=== PATIENT | male | born 1960 | race Caucasian/White ===

== ENCOUNTER 2020-07-26 15:06 | Inpatient (IN) | payer OTHER ==
[~2020-07-26 15:06] MED LIST: Iopamidol-370 76% 500 ML 1 ML ONE
--- NOTE | 2020-07-26 15:45 | RAD ---
XR Chest 1 View Portable HISTORY: Chest pain COMPARISON: None FINDINGS: The heart size is normal. The lungs are well expanded without focal areas of consolidation, pneumothorax or pleural effusions. IMPRESSION: No radiographic evidence of acute cardiopulmonary process.
[2020-07-26 15:56] LABS: #Basophils 0.1 thou/uL (0.0-0.2); #Lymphocytes 2.2 thou/uL (1.20-3.40); #Monocytes 0.9 thou/uL (0.11-0.59); #Neutrophils 7.3 thou/uL (1.40-6.50); %Basophils 0.7 % (0.0-1.0); %Eosinophils 0.3 % (0.0-10.0); %Lymphocytes 21.1 % (21.0-51.0); %Monocytes 8.9 % (0.0-10.0); Hemoglobin 16.7 g/dL (14.0-18.0); Mean Corpuscular HGB CONC 34.8 g/dL (32.0-36.0); Mean Corpuscular Hemoglobin 30.6 pg (27.0-31.0); Mean Corpuscular Volume 87.9 fL (78.0-98.0); Mean Platelet Volume 6.7 fL (7.4-10.4); Platelet Count 314 thou/uL (130-400); RBC Distribution Width 11.5 % (11.5-14.5); Red Blood Cell (RBC) Count 5.44 mill/uL (4.70-6.10); White Blood Cell (WBC) Count 10.6 thou/uL (4.8-10.8)
[2020-07-26 16:18] LABS: ALT (SGPT) 17 U/L (8-55); AST (SGOT) 17 U/L (5-34); Albumin 4.3 g/dL (3.5-5.0); Alkaline Phosphatase 80 U/L (40-110); Anion Gap 14 mmol/L (10-20); BUN (Urea Nitrogen) 12 mg/dL (8.4-25.7); Bilirubin, Total 1.6 mg/dL (0.2-1.2); Calc. Creatinine Clearance 0 mL/min (70-130); Calcium 8.9 mg/dL (7.8-10.44); Carbon Dioxide 23 mmol/L (22-29); Chloride 106 mmol/L (98-107); Estimated GFR-MDRD Greater than 90; Globulin 2.8 g/dL (2.4-3.5); Glucose 142 mg/dL (70-105); Lipase 29 U/L (8-78); Potassium 3.8 mmol/L (3.5-5.1); Protein, Total 7.1 g/dL (6.0-8.3); Sodium 139 mmol/L (136-145)
--- NOTE | 2020-07-26 19:09 | CT ---
CT ABDOMEN WITH CONTRAST CT PELVIS WITH CONTRAST: DATE: 07/26/2020 HISTORY: 55-year-old male with epigastric abdominal pain COMPARISON: None TECHNIQUE: IV injection of iodinated contrast media: administered. Oral contrast media:Not administered FINDINGS: At the dome of the right lobe of the liver in hepatic segment 8, there is a moderately low attenuatio n 1 x 1 x 1 cm lesion with slightly ill-defined margins in a subcapsular location. The rest of the liver is normal. Atherosclerotic calcification without aneurysm, of abdominal aorta and iliac arterie s. There is an approximately 4.5 x 4.2 x 2.7 cm diverticulum protruding from the right posterior edge of the urinary bladder. Rest of the urinary bladder is normal. No significant pathology identified involving the kidneys, adrenals, pancreas, or spleen. Normal appendix. No colonic diverticulitis or abscess. No small bowel dilation, ascites, or pneumoperitoneum. No consolidation or pleural effusion at lung b ases. IMPRESSION: 1) no acute findings. 2) small 1 cm nonspecific lesion at dome of right lobe of liver. [facility] with and without contrast, liver protocol, on a nonemergent basis. 3) prominent right-sided bladder diverticulum.
[2020-07-26 20:04] LABS: Troponin I Less than 0.010 ng/mL (< 0.028)
[2020-07-26] MEDS ORDERED: Nitroglycerin 0.4 MG TAB (25 Tab Bottle) SL PRN (20:10)
[2020-07-26] MEDS ORDERED: Aspirin 325 mg Enteric Coated Tablet PO SCH (21:38)
--- NOTE | 2020-07-26 21:48 | PDOC.HHP ---
Hospitalist HPI - History of Present Illness Chest pain History of Present Illness: This 75-year-old male patient with a history of hypertension was brought in from correction on account of worsening chest pain and abdominal pain. He notes his been having chest pain since December which is constant about 4-6 i n intensity, pleasant located lower retrosternal and persistent. Pain is typically nonradiating radiating and not related to meals or activity. He denies any recent sore throat or cough or associated shortness of breath. He however has intermittent wheezing given his history of COPD. He denies a history of coronary disease however admits to a history of stroke in 2019 and a TIA much earlier. He is currently not on aspirin and statins or any cardioprotective medications. In the ED EKG was unremarkable, Troponin was negative x2 d-dimer was negative, chest x-ray and abdominal CT were both negative for acute events however abdominal CT did note a lesion of 1 x 1 x 1 cm in the dome of the right lobe of the liver. Also 4.5 x 4.2 x 2.7 cm diverticulum also protruding from the right posterior edge of the urinary bladder. Hospitalist team was consulted to admit for chest pain rule out. Hospitalist ROS - Review of Systems Constitutional: denies: fever, chills, sweats, weakness Cardiovascular: reports: chest pain. denies: palpitations, orthopnea, paroxysmal noc. dyspnea Gastrointestinal: reports: abdominal pain. denies: nausea, vomiting, diarrhea Genitourinary: denies: dysuria, frequency, incontinence, hematuria Neurological: denies: weakness, numbness, incoordination, change in speech All other systems reviewed; all pertinent +/- noted in HPI/Subj - Medication Medications: Medications: None Allergies: Nitroglycerin - Exam General - other findings: Patient awake and alert. In no acute distress. Neck - other findings: No JVD, no lymphadenopathy. Heart - other findings: S1-S2 present and normal. No murmurs gallops or rubs. Respiratory - other findings: Air entry adequate bilaterally. Occasional wheezing bilaterally Gastrointestinal - other findings: Soft, mild left-sided tenderness. No rebound tenderness or guarding. [place] Extremities - other findings: No edema or cyanosis Neurological: cranial nerve grossly intact, no focal deficits Psychiatric: A&O x 3 Hospitalist Results - Labs Result Diagrams: 07/26/20 15:45 07/26/20 15:45 Lab results: WBC 10.6 thou/uL (4.8-10.8) 07/26/20 15:45 Hgb 16.7 g/dL (14.0-18.0) 07/26/20 15:45 Hct 47.8 % (42.0-52.0) 07/26/20 15:45 MCV 87.9 fL (78.0-98.0) 07/26/20 15:45 Plt Count 314 thou/uL (130-400) 07/26/20 15:45 Neutrophils % 69.0 % (42.0-75.0) 07/26/20 15:45 Sodium 139 mmol/L (136-145) 07/26/20 15:45 Potassium 3.8 mmol/L (3.5-5.1) 07/26/20 15:45 Chloride 106 mmol/L (98-107) 07/26/20 15:45 Carbon Dioxide 23 mmol/L (22-29) 07/26/20 15:45 BUN 12 mg/dL (8.4-25.7) 07/26/20 15:45 Creatinine 0.86 mg/dL (0.7-1.3) 07/26/20 15:45 Glucose 142 mg/dL (70-105) H 07/26/20 15:45 Calcium 8.9 mg/dL (7.8-10.44) 07/26/20 15:45 Total Bilirubin 1.6 mg/dL (0.2-1.2) H 07/26/20 15:45 AST 17 U/L (5-34) 07/26/20 15:45 ALT 17 U/L (8-55) 07/26/20 15:45 Alkaline Phosphatase 80 U/L (40-110) 07/26/20 15:45 Troponin I Less than 0.010 ng/mL (< 0.028) 07/26/20 19:31 Serum Total Protein 7.1 g/dL (6.0-8.3) 07/26/20 15:45 Albumin 4.3 g/dL (3.5-5.0) 07/26/20 15:45 Lipase 29 U/L (8-78) 07/26/20 15:45 Hospitalist H&P A/P - Plan Plan: This is a 55-year-old male patient with a history of hypertension was brought in and present on account of ongoing worsening chest pain. Chest pain Patient notes a conflicting history of coronary disease Also notes he is had a stroke in the past year. Start him on aspirin He is allergic to nitroglycerinwe will hold. Chest pain had resolved at the time of my evaluation. We will admit for monitoring overnight and cardiac evaluation in the morning for possible stress test. Abdominal pain Examination generally benign Bladder diverticulum noted on CT scan Also has hepatic lesion of unclear significance Hepatic lesion Noted on CT scan We will consult GI for further assessment. Bladder diverticulum Apparently asymptomatic Consult urology for further evaluation. DVT prophylaxisSCDs CODE STATUSfull code
[2020-07-26] MEDS: Acetaminophen 325 MG TAB PO PRN (21:59)
[2020-07-26 22:32] LABS: Troponin I Less than 0.010 ng/mL (< 0.028)
[2020-07-26 23:08] VITALS: BMI 23.8
[2020-07-27 04:39] LABS: #Basophils 0.1 thou/uL (0.0-0.2); #Eosinphils 0.2 thou/uL (0.0-0.7); #Lymphocytes 3.4 thou/uL (1.20-3.40); #Neutrophils 5.6 thou/uL (1.40-6.50); %Basophils 0.9 % (0.0-1.0); %Eosinophils 1.6 % (0.0-10.0); %Lymphocytes 33.1 % (21.0-51.0); %Monocytes 9.5 % (0.0-10.0); Hemoglobin 16.5 g/dL (14.0-18.0); Mean Corpuscular HGB CONC 33.8 g/dL (32.0-36.0); Mean Corpuscular Hemoglobin 30.3 pg (27.0-31.0); Mean Corpuscular Volume 89.6 fL (78.0-98.0); Mean Platelet Volume 6.6 fL (7.4-10.4); Platelet Count 304 thou/uL (130-400); RBC Distribution Width 11.7 % (11.5-14.5); Red Blood Cell (RBC) Count 5.44 mill/uL (4.70-6.10); White Blood Cell (WBC) Count 10.2 thou/uL (4.8-10.8)
[2020-07-27 05:01] LABS: Anion Gap 12 mmol/L (10-20); BUN (Urea Nitrogen) 15 mg/dL (8.4-25.7); Calc. Creatinine Clearance 107 mL/min (70-130); Calcium 8.7 mg/dL (7.8-10.44); Carbon Dioxide 23 mmol/L (22-29); Chloride 108 mmol/L (98-107); Estimated GFR-MDRD Greater than 90; Glucose 102 mg/dL (70-105); Potassium 4.2 mmol/L (3.5-5.1); Sodium 139 mmol/L (136-145)
[2020-07-27] MEDS: Aspirin 81 mg Enteric Coated Tablet PO SCH (07:49)
[2020-07-27] MEDS ORDERED: Regadenoson 0.4 MG/5 ML SYRINGE ONE (09:23)
[2020-07-27 14:58] LABS: SARS-CoV-2 MS2 Positive; SARS-CoV-2 N Gene Negative; SARS-CoV-2 S Gene Negative; SARS-CoV-2 by NAA Not Detected (NotDetected); SARS-CoV-2 orf1ab Negative
--- NOTE | 2020-07-27 15:27 | PDOC.HOSPP ---
- Subjective Encounter Date: 07/27/20 Encounter Time: 13:00 Subjective: Patient was seen and examined in bed. Chest pain improved. No shortness of breath. - Objective Vital Signs & Weight: Vital Signs (12 hours) Temp Pulse Resp BP Pulse Ox 07/27/20 11:16 98.3 F 73 16 133/89 96 07/27/20 07:02 98.1 F 73 20 134/77 94 L 07/27/20 04:34 97.6 F 72 18 117/75 93 L Weight Admit Weight 171 lb 4 oz Weight 171 lb 4 oz I&O: 07/26/20 07/27/20 07/28/20 06:59 06:59 06:59 Intake Total 677 Balance 677 Result Diagrams: 07/27/20 04:21 07/27/20 04:21 Hospitalist ROS - Medication Medications: Active Medications Generic Name Dose Route Start Last Admin Trade Name Freq PRN Reason Stop Dose Admin Acetaminophen 650 mg 07/26/20 20:10 07/26/20 21:59 Acetaminophen 325 Mg Tab PO 650 mg Q4H PRN Administration Headache/Fever/Mild Pain (1-3) Aspirin 81 mg 07/27/20 09:00 07/27/20 07:49 Aspirin 81 Mg Enteric Coated Tablet PO 81 mg DAILY MARY Administration - Exam General - other findings: Patient in arm and leg shackles. No acute distress. Heart - other findings: S1-S2 present and normal. No murmurs gallops or rubs. Respiratory - other findings: Entry adequate bilaterally. Rhonchi rales Gastrointestinal - other findings: Soft, nontender. Nondistended bowel sounds present. Extremities - other findings: No edema. Hosp A/P - Plan 55-year-old male patient, currently a prisoner with a history of hypertension on admission on account of chest pain. Chest pain Improved We will have stress test today Cardiology consulted. Abdominal pain Unclear etiology Hepatic lesion Noted on CT GI consultedappreciate input. Bladder diverticulum Likely asymptomatic however urology consulted Appreciate input. DVT prophylaxis SCD CODE STATUSfull code
--- NOTE | 2020-07-27 16:45 | CON ---
DATE OF CONSULTATION: 07/27/2020 REQUESTING PHYSICIAN: Dr. Barrington Magana. REASON FOR CONSULTATION: Bladder diverticulum. HISTORY OF PRESENT ILLNESS: Mr. Brady is a male with history of hypertension, who was brought in from shelter secondary to chest and abdominal pain. The patient has had a chest pain rule out. He underwent a stress test, which evidently was unremarkable. The patient continues to have some abdominal pain, describes it as a mid to low abdominal pressure. No nausea or vomiting. No fever or chills. CT of the abdomen and pelvis demonstrated a lesion on the right lobe of the liver as well as a right posterior bladder diverticulum. Urology was consulted for evaluation of the bladder diverticulum. The patient denies any bothersome lower urinary tract symptoms. No frequency, urgency, or nocturia. He does intermittently have weak stream and some intermittency. No gross hematuria. No other complaints. REVIEW OF SYSTEMS: Negative other than that mentioned in HPI. MEDICATIONS: None. ALLERGIES: NITROGLYCERIN. FAMILY HISTORY: Noncontributory. SOCIAL HISTORY: He is currently in shelter. PAST SURGICAL HISTORY: None. PAST MEDICAL HISTORY: 1. Hypertension. 2. History of stroke in 2019 and TIA prior to this. PHYSICAL EXAMINATION: VITAL SIGNS: Temperature 98.2, pulse 96, respirations 16, oxygen saturation 96% on room air, blood pressure 142/93. GENERAL: He is alert and oriented x3. No apparent distress. HEENT: Normocephalic, atraumatic. NECK: Supple. No masses or lymphadenopathy. CARDIOVASCULAR: Regular rate and rhythm. PULMONARY: Breathing unlabored. ABDOMEN: Soft, nontender/nondistended. No masses or organomegaly. No suprapubic tenderness to palpation. No CVA tenderness. EXTREMITIES: Warm and well perfused. No edema. NEUROLOGIC: No focal deficits. LABORATORY DATA: White blood cell count 10.2, hemoglobin 16.5, hematocrit 48.7, platelets 304. Sodium 139, potassium 4.2, chloride 108, bicarb 23, BUN 15, creatinine 0.82. ASSESSMENT: A 59-year-old male with nonspecific chest and abdominal pain, also with bladder diverticulum. PLAN: I reviewed the natural history and clinical implications of bladder diverticulum with the patient in detail. 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 He does not have significant bladder wall thickening or other diverticulum worrisome for bladder outlet obstruction. He has no bothersome lower urinary tract symptoms. This is an incidental finding and not likely the cause of his abdominal pain. There is no need for urologic followup at this time. Job ID: [id number]
[2020-07-27] MEDS: Acetaminophen 325 MG TAB PO PRN ×2 (16:47→22:54)
--- NOTE | 2020-07-27 16:49 | NM ---
MYOCARDIAL PERFUSION EVALUATION: 07/27/20 INDICATION: History of chest pain. RADIOPHARMACEUTICAL: 29.4 millicuries technetium 99m Sestamibi IV with stress and 9.5 millicuries technetium 99m Sestamibi with rest. FINDINGS: When comparing the rest and stress images, no reversible myocardial perfusion defect is evident. Ther e is normal wall motion and thickening. Estimated LVEF is 78%. IMPRESSION: No definite reversible myocardial perfusion defect is evident. POS: BH
[2020-07-27] MEDS ORDERED: GoLYTELY 4,000 ml Bottle PO SCH (17:00)
[2020-07-28 05:33] LABS: CEA, Serum 2.85 ng/mL (< or = 5.0)
[2020-07-28 05:48] LABS: HBCM Index 0.07 S/CO (0-0.79); HBSAg Index 0.17 S/CO (0-0.99); Hep A IgM AB Non-Reactive (NonReactive); Hep A IgM S/CO 0.16 S/CO (0-0.79); Hep B Surf Ag Non-Reactive S/CO (NonReactive); Hep C IgG Ab Non-Reactive (NonReactive); Hep C Index 0.07 S/CO (0-0.79); Hepatitis B Core IgM Abs Non-Reactive (NonReactive)
--- NOTE | 2020-07-28 06:32 | CON ---
DATE OF CONSULTATION: 07/27/2020 REQUESTING PHYSICIAN: Dr. Magana. REASON FOR CONSULTATION: Liver lesion. 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 He reports a history of coronary artery disease and CVA in 2019 as well as COPD. He says he recalls having undergone colonoscopy in 2017 or possibly a flexible sigmoidoscopy which he believes was normal. He recalls having had an EGD in the remote past and being told he had a hiatal hernia. He had been taking Zantac for a long time for some chronic reflux symptoms, but more recently is taking Prilosec daily. He says that ever since December for about the past 7 months now, he has been having generalized migratory abdominal pain. This often involves the lower abdomen, then swinging around to the left upper quadrant and involving the epigastrium. Sometimes it is postprandial, but often it is just random. It does bother him most days. There has been some nausea, though no vomiting. Through all this, his bowel movements have remained fairly unremarkable, brown in color with no melena or hematochezia noted. He has lost about 10 pounds in the past 6 months, which he attributes to change in diet due to his location, but then over the past several weeks, he has also been having some pain in the chest, which he does associate with the abdominal pain. He is not having any dyspnea or any dizziness or lightheadedness. Upon presentation, labs are essentially unremarkable with negative troponins, lipase, total bilirubin 1.6, but otherwise normal LFTs, CMP, and CBC. COVID PCR is negative. He had a CT of the abdomen and pelvis on admission yesterday and this shows a 4.5 cm bladder diverticulum and also a 1 cm subcapsular right-sided liver lesion near the dome. The liver otherwise appears normal and the CT is otherwise unremarkable. He went down for cardiac stress test this afternoon. The report on that is not yet back. Cardiology has been consulted as well. The patient has no known history of any liver disease or illness. REVIEW OF SYSTEMS: Full review of systems including constitutional, head, eyes, ears, nose, throat, GI, , cardiovascular, respiratory, musculoskeletal, neurologic systems is negative except as noted in the HPI. PAST MEDICAL HISTORY: Hypertension, hypothyroidism, CVA in 2019, CAD, COPD, hiatal hernia. ALLERGIES: NITROGLYCERIN. OUTPATIENT MEDICATIONS: 1. Omeprazole 20 mg daily. 2. Synthroid 50 mcg daily. 3. Lisinopril 20 mg daily. 4. Atorvastatin 40 mg daily. 5. Amlodipine 10 mg daily. Inpatient medication: 1. Aspirin 81 mg daily. SOCIAL HISTORY: The patient is a group home inmate. FAMILY HISTORY: Noncontributory PHYSICAL EXAMINATION: VITAL SIGNS: Temperature 98.3, pulse 73, blood pressure 133/89, 96% oxygen saturation on room air. GENERAL: A 59-year-old man, lying in bed comfortably, in no distress. MENTAL: Alert and fully oriented. Pleasant, conversational. He can give details about his history. SKIN: No jaundice. No rashes were palpable. He does have multiple tattoos. EYES: No scleral icterus. Extraocular movements intact. ENT: Mucous membranes moist. No oral lesions. LYMPH: No submandibular or supraclavicular lymphadenopathy. THYROID: Nontender to palpation. HEART: Regular rate and rhythm. LUNGS: Clear to auscultation bilaterally. ABDOMEN: Nondistended. Bowel sounds present. Soft. Generalized tenderness to palpation, but no guarding or rebound tenderness. EXTREMITIES: No peripheral edema. VESSELS: Radial pulses 2+ bilaterally. NEUROLOGIC: Cranial nerves 2 through 12 intact bilaterally. No focal deficits. LABORATORY STUDIES: WBC 10.2, hemoglobin 16.5, platelets 304. Sodium 139, potassium 4.2, BUN 15, creatinine 0.82, total bilirubin 1.6, alkaline phosphatase 80, AST 17, ALT 17, albumin 4.3, lipase only 29. D-dimer less than 0.27. Troponin negative x3. COVID PCR negative. IMAGING STUDIES: Chest x-ray shows no acute processes. CT of the abdomen and pelvis shows a 4.5 cm bladder diverticulum. There is also a 1 cm ill-defined subcapsular right-sided liver lesion near the dome of the liver, which is not able to be characterized further. The liver otherwise appears normal. Normal-appearing pancreas, spleen, appendix, and bowel. ASSESSMENT AND PLAN: 1. Generalized abdominal pain. 2. Solitary liver lesion, measuring 1 cm in the right liver near the dome. I had a long discussion with the patient about his presentation. This solitary liver lesion is likely incidental to his presenting complaints. We discussed a wide differential to include benign cyst or scar versus early primary liver neoplasm or solitary metastasis. I do think some further workup is in order. We are going to obtain viral hepatitis serologies and tumor markers including AFP, CA-19-9, and CEA levels. Further, we will plan for diagnostic EGD and colonoscopy. We will tentatively plan this for tomorrow, assuming it is okay per Cardiology evaluation. 3. Chest pain. He is not currently having any chest pain. Note, the negative troponins and D-dimer as well as chest x-ray. Report on the cardiac stress testing and formal Cardiology evaluation are pending. Thank you for the consultation. Please call anytime with questions or concerns. Job ID: [id number]
[2020-07-28] MEDS ORDERED: PROPOFOL 200 MG/20 ML VIAL ONE (09:14)
[2020-07-28] MEDS ORDERED: EPHEDRINE 25 MG/5 ML SYRINGE ONE (09:14)
--- NOTE | 2020-07-28 12:51 | CON ---
DATE OF CONSULTATION: HISTORY OF PRESENT ILLNESS: The patient is a 59-year-old gentleman who presents with abdominal and chest discomfort. The patient has a previous history of a cerebrovascular accident and multiple TIAs. The patient has no known cardiac history. The patient presented with constant chest and abdominal discomfort for the past several months. He states this is persistent. He denies having any PND or orthopnea. The patient was admitted for further evaluation. The patient has several cardiac risk factors including hypertension, dyslipidemia. PAST MEDICAL HISTORY: 1. Hypertension. 2. Dyslipidemia. 3. CVA. 4. Migraine headaches. PAST SURGICAL HISTORY: None. SOCIAL HISTORY: Nonsmoker. FAMILY HISTORY: Positive family history of heart disease. MEDICATIONS: 1. Synthroid 50 mcg daily. 2. Prilosec 20 daily. 3. Lisinopril 20 daily. 4. Lipitor 40 at bedtime. 5. Norvasc 10 daily. ALLERGIES: BUTYROPHENONE AND NITROGLYCERIN. REVIEW OF SYSTEMS: 10-point system otherwise unremarkable. PHYSICAL EXAMINATION: GENERAL: A well-developed gentleman, in no acute distress. VITAL SIGNS: Blood pressure 117/73. NECK: No jugular venous distention. LUNGS: Clear to auscultation. HEART: Regular rate and rhythm. Normal S1 and S2. No murmurs. ABDOMEN: Nondistended. EXTREMITIES: Show no edema. VASCULAR: Radial pulses are 2+. LABORATORY DATA: White blood cell count 10.2, hemoglobin 16.5, hematocrit 48.7, platelets are 304. Sodium 139, potassium 4.2, chloride 108, bicarbonate 23, BUN 15, creatinine 0.82. Troponin less than 0.01. EKG revealed him to have normal sinus rhythm with possible with small inferolateral Q-waves. Cardiolite stress test revealed normal left ventricular ejection fraction 78% with no evidence of ischemia or infarction. IMPRESSION: 1. Atypical chest pain. 2. Abdominal discomfort. 3. Hypertension. 4. Dyslipidemia. 5. History of cerebrovascular accident. PLAN: This gentleman presented with a 6-month history of persistent chest and abdominal discomfort. He is undergoing a GI evaluation. The patient's nuclear stress test reveals no evidence of ischemia. From a cardiac standpoint, he is on appropriate medications. He should continue on Lipitor and aspirin. We will follow this patient with you through his hospitalization. Job ID: [id number] [facility]
[2020-07-28] MEDS ORDERED: Ketorolac Tromethamine 30 MG/ML VIAL IVP SCH (13:15)
[2020-07-28] MEDS ORDERED: Ketamine 50 MG/ML (10ML VIAL) ONE (13:53)
--- NOTE | 2020-07-28 15:14 | PDOC.HOSPP ---
- Subjective Encounter Date: 07/28/20 Encounter Time: 15:12 Subjective: He was seen and examined in bed. He denied any ongoing chest pain or abdominal pain. No shortness of breath. - Objective Vital Signs & Weight: Vital Signs (12 hours) Temp Pulse Resp BP Pulse Ox 07/28/20 11:05 98.4 F 75 16 123/77 95 07/28/20 07:17 98.2 F 70 16 117/73 94 L 07/28/20 03:52 98.5 F 76 15 109/70 95 Weight Admit Weight 171 lb 4 oz Weight 171 lb 4 oz I&O: 07/27/20 07/28/20 07/29/20 06:59 06:59 06:59 Intake Total 677 500 Balance 677 500 Result Diagrams: 07/27/20 04:21 07/27/20 04:21 Hospitalist ROS - Medication Medications: Active Medications Generic Name Dose Route Start Last Admin Trade Name Freq PRN Reason Stop Dose Admin Acetaminophen 650 mg 07/26/20 20:10 07/27/20 22:54 Acetaminophen 325 Mg Tab PO 650 mg Q4H PRN Administration Headache/Fever/Mild Pain (1-3) Aspirin 81 mg 07/27/20 09:00 07/27/20 07:49 Aspirin 81 Mg Enteric Coated Tablet PO 81 mg DAILY MARY Administration Ketorolac Tromethamine 30 mg 07/28/20 13:15 07/28/20 13:19 Ketorolac Tromethamine 30 Mg/Ml Vial IVP 07/28/20 15:15 30 mg NOW MARY Administration - Exam General - other findings: No acute distress. Heart: RRR, no murmur, no gallops, no rubs Respiratory: no wheezes, no rales, no ronchi, normal chest expansion Gastrointestinal: soft, non-tender, non-distended, normal bowel sounds Extremities: no cyanosis, no clubbing, no edema Neurological: cranial nerve grossly intact, no focal deficits Psychiatric: A&O x 3 Hosp A/P - Plan 55-year-old male patient, currently a prisoner with a history of hypertension on admission on account of chest pain. Stress test was negative. He is however been evaluated for hepatic nodule and will undergo endoscopy today. Chest pain Improved Stress test was within normal limits. We will continue Lipitor and aspirin Cardiology following Abdominal pain Unclear etiology Currently resolved. Hepatic lesion Noted on CT GI consulted He will have upper and lower GI endoscopy today Bladder diverticulum Likely asymptomatic however urology consulted No surgery needed at this point Appreciate input. DVT prophylaxis SCD CODE STATUSfull code
[2020-07-28] MEDS ORDERED: Ondansetron HCl/PF 4 MG/2 ML Vial IVP PRN (15:44)
[2020-07-28] MEDS ORDERED: Promethazine HCl 25 MG/ML VIAL IM PRN (15:44)
[2020-07-28] MEDS ORDERED: Promethazine HCl 25 MG/ML VIAL SLOW IVP PRN (15:44)
[2020-07-28] MEDS: Aspirin 81 mg Enteric Coated Tablet PO SCH ×2 (16:42→16:51)
--- NOTE | 2020-07-28 18:33 | OP ---
DATE OF PROCEDURE: 07/28/2020 GRAPE CRUSHER SURGEON: None. PROCEDURES PERFORMED: 1. Esophagogastroduodenoscopy with biopsies. 2. Colonoscopy, diagnostic. INDICATIONS: 1. Generalized abdominal pain. 2. Chest pain. 3. Solitary 1 cm liver lesion. 4. Weight loss. MEDICATIONS: See Anesthesia record. FINDINGS: After discussion of the risks, benefits, and alternatives of the procedure, informed consent was obtained and witnessed. Pre-endoscopic cardiopulmonary examination was satisfactory. Time-out was performed before sedation was achieved. Sedation was achieved with Anesthesia assistance in the endoscopy unit. A Pentax adult upper endoscope was placed into the oropharynx and passed through the cricopharyngeus under direct visualization. The esophageal mucosa appeared normal throughout with a normal-appearing Z-line. The endoscope was advanced into the stomach. Forward and retroflexed views of the entire gastric mucosa were obtained. The gastric fundus and body appeared normal. In the gastric antrum, there was some diffuse erosive gastritis with no evidence of active hemorrhage. The endoscope was advanced through the pylorus and into the first and second portions of the duodenum, which appeared normal. Biopsies were obtained from the gastric antrum and body to rule out H pylori infection. The upper endoscope was completely withdrawn and the patient was repositioned. Digital rectal exam was performed, which was unremarkable. A Pentax adult colonoscope was inserted into the anus and passed forward to the cecum in the usual fashion. The cecal base was identified by the appendiceal orifice as well as the ileocecal valve. The terminal ileum was not intubated. The colonoscope was slowly withdrawn in a gradual circumferential manner with careful examination of the colonic mucosa to the best extent possible. The quality of the bowel prep was poor in the right colon, however. There was good visualization of probably 70% to 80% of the colonic mucosa in the right colon. This was adequate to exclude any gross lesions, but would not be adequate for screening purposes. Where examined, the colonic mucosa appeared completely normal throughout. Retroflexion in the rectum demonstrated internal hemorrhoids. The colonoscope was completely withdrawn and the patient allowed to recover. The patient tolerated the procedure well. There were no immediate postprocedure complications. IMPRESSION: 1. Erosive gastritis in the antrum, biopsied to rule out Helicobacter pylori. 2. Small hiatal hernia. 3. Otherwise normal esophagogastroduodenoscopy. 4. Poor preparation in the right colon, but no obvious lesion or abnormality visualized within the limits of poor prep exam. 5. Internal hemorrhoids. 6. Otherwise normal colonoscopy to the cecum. RECOMMENDATIONS: 1. Daily proton pump inhibitor. 2. Follow up results of gastric biopsies. If H pylori is present, treat with triple therapy and confirm eradication. 3. Advance diet. 4. I note the normal AFP and CEA levels. We will follow up on the CA-19-9 level when available. 5. I would recommend the patient have repeat interval imaging of the liver, with MRI of the abdomen, liver mass protocol, in 3 months. This should be arranged through the [facility]. 6. GI will sign off. Please call back if needed. Job ID: [id number]
[2020-07-28] MEDS ORDERED: Atorvastatin Calcium 40 MG TAB PO SCH (21:00)
[2020-07-28] MEDS ORDERED: Metoprolol Tartrate 25 MG TAB PO SCH (21:00)
[2020-07-28 21:04] LABS: #Eosinphils 0.1 thou/uL (0.0-0.7); #Lymphocytes 2.7 thou/uL (1.20-3.40); #Monocytes 0.9 thou/uL (0.11-0.59); #Neutrophils 9.4 thou/uL (1.40-6.50); %Basophils 0.4 % (0.0-1.0); %Eosinophils 0.8 % (0.0-10.0); %Lymphocytes 20.4 % (21.0-51.0); %Neutrophils 71.5 % (42.0-75.0); Hemoglobin 16.2 g/dL (14.0-18.0); Mean Corpuscular HGB CONC 33.8 g/dL (32.0-36.0); Mean Corpuscular Hemoglobin 29.9 pg (27.0-31.0); Mean Corpuscular Volume 88.5 fL (78.0-98.0); Mean Platelet Volume 6.5 fL (7.4-10.4); Platelet Count 324 thou/uL (130-400); RBC Distribution Width 11.4 % (11.5-14.5); Red Blood Cell (RBC) Count 5.41 mill/uL (4.70-6.10); White Blood Cell (WBC) Count 13.2 thou/uL (4.8-10.8)
[2020-07-28 21:27] LABS: Anion Gap 13 mmol/L (10-20); BUN (Urea Nitrogen) 16 mg/dL (8.4-25.7); Calc. Creatinine Clearance 81 mL/min (70-130); Calcium 8.9 mg/dL (7.8-10.44); Carbon Dioxide 26 mmol/L (22-29); Chloride 103 mmol/L (98-107); Estimated GFR-MDRD 70; Glucose 130 mg/dL (70-105); Magnesium 1.8 mg/dL (1.6-2.6); Potassium 3.8 mmol/L (3.5-5.1); Sodium 138 mmol/L (136-145)
[2020-07-29 07:17] VITALS: BP 130/89; TEMP 97.5
[2020-07-29] MEDS: Aspirin 81 mg Enteric Coated Tablet PO SCH (07:53)
--- NOTE | 2020-07-30 11:11 | DIS ---
DATE OF ADMISSION: 07/26/2020 DATE OF DISCHARGE: 07/29/2020 DISCHARGE DIAGNOSES: 1. Atypical chest pain. 2. Abdominal pain. 3. Solitary hepatic cyst/lesion. 4. Bladder diverticulum. 5. Anxiety. BRIEF HOSPITAL COURSE: This is a 59-year-old male patient with a history of hypertension who presented with pain in the chest and abdomen. At presentation, CT scan of his abdomen revealed a solitary hepatic lesion and bladder diverticulum. Otherwise, no other lesion to explain his pain. His chest pain has been intermittent for the past 5 months and has worsened over the past couple of days. Initial troponin was negative. No concerning EKG changes. EKG revealed no concerning ST or T wave changes. Chest x-ray showed no acute cardiopulmonary events. He was admitted for a stress test, which turned out negative- Cardiology was consulted. He was started on aspirin and statins. GI evaluated solitary hepatic nodule with an upper and lower GI endoscopy, which revealed no lesion, but mild gastritis, for which a biopsy was taken, which showed no Helicobacter pylori. He would follow up with the GI in the intermediate system for further evaluation. He would require repeat MRI in 3 month. For bladder diverticulum, Urology was consulted. It was noted that bladder diverticulum was benign. It could not account for his abdominal pain. The patient was discharged to follow up his primary care physician and repeat MRI of the abdomen. CONSULTATIONS: 1. Gastroenterology - Dr. Richard Weiss. 2. Urology - Dr. Maurice Ruffin. 3. Cardiology - Dr. Lio Marquez. DISCHARGE PHYSICAL EXAMINATION: GENERAL: The patient was in no acute distress. RESPIRATORY SYSTEM: Air entry adequate bilaterally. No rhonchi or rales. CARDIOVASCULAR SYSTEM: S1 and S2 present. No murmurs, gallops, or rubs. ABDOMEN: Soft, nontender. Bowel sounds present. EXTREMITIES: No edema noted. DISCHARGE MEDICATIONS: 1. Aspirin 81 mg daily. 2. Atorvastatin 40 mg daily. He will continue his home medications. DISCHARGE CONDITION: Stable. Job ID: [id number] [facility]
--- NOTE | 2020-07-30 16:04 | EKG ---
Test Reason : CP Blood Pressure : / mmHG Vent. Rate : 114 BPM Atrial Rate : 114 BPM P-R Int : 192 ms QRS Dur : 090 ms QT Int : 324 ms P-R-T Axes : 054 047 036 degrees QTc Int : 446 ms Sinus tachycardia Inferior infarct , age undetermined cannot be excluded Abnormal ECG No previous ECGs available Confirmed by LAN BENAVIDES ([id number]) on 07/30/2020 4:04:33 PM Referred By: NIRMAL Confirmed By:LAN BENAVIDES
--- NOTE | 2020-07-30 21:45 | PQF ---
CLINICAL DOCUMENTATION CLARIFICATION FORM: Dear : ___Barrington Magana MD, PhD DateTime:_07/30/2020 Please exercise your independent, professional judgment in responding to the clarification form. Clinical indicators are provided on the bottom of this form for your review Please check appropriate box(es): [ ] Atypical Chest pain due to Hypertension [ ] Atypical Chest pain due to Liver lesion [ x] Atypical chest pain due to unspecified cause [ ] Other diagnosis [ ] Unable to determine Physician Signature: REINA Date/Time: For continuity of documentation, please document condition throughout progress notes and discharge summary. Thank You. To be completed by CDI/Coding staff for physician review: Present Clinical Indicators - Signs / Symptoms / Labs Results and Location in Medical Record [x ] Chest pain -improved Hospital PN, 07/28, Barrington Magana MD [x ] Atypical Chest pain Consultation, 07/28, Lio Marquez MD [x ] Non specific chest and abdominal pain and also with bladder diverticulum Consultation report, 07/27, Maurice Ruffin MD [ x ] The patients nuclear stress test reveals no evidence of ishemia Consultation report, 07/27, Maurice Ruffin MD [ x ] BP: 162/94H on 07/27, 107/64 on 07/29, 130/89 on 07/29 Vital signs report Present Risk Factors Results and Location in Medical Record [x ] PMH: Hypertension Hospital PN, 07/28, Barrington Magana MD [ x] Hepatic lesion Hospital , 07/28, Barrington Magana MD Present Treatments Results and Location in Medical Record [x ] Nitroglycerin.PO DEC, 07/26 [ x ] Aspirin.PO DEC, 07/26 CDS/Spooler Signature: Reggie Banks Phone #: [phone] Date/Time:07/30/2020 This is a permanent part of the Medical Record [facility]
--- NOTE | 2020-08-07 13:49 | STRESS ---
Acquisition Time: 2020-07-27 13:43:44 Total Exercise Time: 00:01:00 Test Indications: CHEST PAIN Medications: Protocol: LEXISCAN Max HR: 123 BPM 76% of Pred: 161 BPM Max BP: 172/100 mmHG Max Work Load: 1.0 METS THE PATIENT WAS INJECTED WITH LEXISCAN. HE DID NOT DEVELOP CHEST PAIN. THERE WAS NO SIGNIFICANT ST DEPRESSION. AWAIT NUCLEAR IMAGES FOR DEFINITIVE DIAGNOSIS. Confirmed by LAN BENAVIDES ([id number]), features editor GIOVANNI VALENCIA ([id number]) on 08/07/2020 1:49:22 PM Referred By: MD Paulina LOO Confirmed By:LAN BENAVIDES
--- NOTE | 2020-08-07 16:42 | EKG ---
Test Reason : Blood Pressure : / mmHG Vent. Rate : 117 BPM Atrial Rate : 117 BPM P-R Int : 162 ms QRS Dur : 088 ms QT Int : 320 ms P-R-T Axes : 061 039 033 degrees QTc Int : 446 ms Sinus tachycardia Possible Lateral infarct , age undetermined Abnormal ECG Confirmed by SERGE ARNDT DO ([id number]), videotape editor MARICRUZ ROMERO ([id number]) on 08/07/2020 4:42:16 PM Referred By: Confirmed By:SERGE ARNDT DO
== END 2020-07-29 11:24 | DRG 392 ==
LOC: ERS 15:06 → 2SW 19:19 → EDBD 19:19 → OBSVTOIN 19:19
PROVIDERS: ADMIT Student in an Organized Health Care Education/Training Program; ATTEND Student in an Organized Health Care Education/Training Program
PROC: 0DB78ZX Excision of Stomach, Pylorus, Via Natural or Artificial Opening Endoscopic, Diagnostic (ICD-10-PCS; principal; 2020-07-28)
PROC: 0DJD8ZZ Inspection of Lower Intestinal Tract, Via Natural or Artificial Opening Endoscopic (ICD-10-PCS; 2020-07-28)
DX: R10.9 Unspecified abdominal pain (principal); R07.89 Other chest pain; N32.3 Diverticulum of bladder; K76.9 Liver disease, unspecified; I10 Essential (primary) hypertension; Z20.828 Contact with and (suspected) exposure to other viral communicable diseases; I25.10 Atherosclerotic heart disease of native coronary artery without angina pectoris; E03.9 Hypothyroidism, unspecified; K21.9 Gastro-esophageal reflux disease without esophagitis; K64.8 Other hemorrhoids; K44.9 Diaphragmatic hernia without obstruction or gangrene; K29.00 Acute gastritis without bleeding; E78.5 Hyperlipidemia, unspecified; K64.9 Unspecified hemorrhoids; J44.9 Chronic obstructive pulmonary disease, unspecified; G43.909 Migraine, unspecified, not intractable, without status migrainosus; Z88.8 Allergy status to other drugs, medicaments and biological substances; Z86.73 Personal history of transient ischemic attack (TIA), and cerebral infarction without residual deficits; Z95.5 Presence of coronary angioplasty implant and graft
CPT/HCPCS: 36415; 71045; 74177; 78452; 80048; 80053; 80074; 82105; 82378; 83690; 83735; 84484; 85025; 85379; 86301; 87635; 88305; 88312; 93005; 93010; 93017; 94760; A9500; G0378; J1885; J2704; J2785; Q9967; U0003

== ENCOUNTER 2020-12-23 18:45 | Inpatient (IN) | payer OTHER ==
[~2020-12-23 18:45] MED LIST changes: +Iopamidol 370 76% 100 ML VIAL ONE
[2020-12-23] MEDS ORDERED: diphenhydrAMINE 50 MG/ML VIAL ONE (18:53)
[2020-12-23] MEDS ORDERED: methylPREDNISolone Sod Succ/PF 125 MG/2 ML VIAL ONE (18:53)
--- NOTE | 2020-12-23 19:02 | CT ---
EXAM: CT brain without contrast HISTORY: Dysphasia COMPARISON: None TECHNIQUE: Multiple contiguous axial images were obtained and a CT of the brain without contrast. Sag ittal and coronal reformats were performed. FINDINGS: The brain is normal in morphology and attenuation without focal lesions or confluent areas of infarction. There is no evidence of hydrocephalus, intracranial hemorrhage, or extra-axial fluid collection. The calvarium and overlying soft tissues are unremarkable. The visualized paranasal sinuses and masto id air cells are well aerated. IMPRESSION: No evidence of acute intracranial abnormality
--- NOTE | 2020-12-23 19:31 | CT ---
CTA of the head with IV contrast and 3-D reformatted imaging. CTA of the neck with IV contrast and 3-D reformatted imaging. INDICATION: Level 1 stroke; history of dysphasia and right-sided weakness COMPARISON: None FINDINGS: CTA OF THE HEAD WITH CONTRAST: CTA OF THE BRAIN: Right ICA: Patent. Right MCA: Patent. Right DEMI: Patent. ACOM: Patent. Left ICA: Patent. Left MCA: Patent. Left DEMI: Patent. PCOMs: Patent. Vertebral arteries: Patent. Basilar Artery: Patent. strap machine operator automatic: Patent. Incidentals: There is slight asymmetry of the venous sinuses; however, both transverse sinuses, sigm oid sinuses and jugular sinuses appear patent. There is some mixing artifact within the proximal jugular veins. This is likely related to a developmental variant. CTA OF THE NECK WITH CONTRAST: Right CCA: Patent. Right ICA: There are mild calcifications involving the origin of the right ICA. Right Subclavian: Patent. Right Vertebral Artery: Patent. Left CCA: Patent. Left ICA: There are mild obstructive constipation involving the proximal left ICA. No hemodynamicall y significant stenosis is evident. Left Subclavian: Patent. Left Vertebral Artery: Patent. Aerodigestive tract: There is fluid distention of the esophagus. Parotids/Submandibular/Thyroid glands: Normal. Lymph nodes: No pathologically enlarged lymph nodes. Lung Apices: Emphysema Bones: There is scattered degenerative and osteoarthritic change present. Incidentals: None. IMPRESSION: 1. No hemodynamically significant stenosis, occlusion or aneurysmal formation. 2. Moderate fluid distention esophagus may reflect dysphagia or reflux.
--- NOTE | 2020-12-23 19:32 | CT ---
EXAM: CTA of the chest and abdomen HISTORY: Chest pain and back pain COMPARISON: CT abdomen/pelvis 07/26/2020 TECHNIQUE: Multiple contiguous axial images were obtained a CTA of the chest and abdomen with contras t per aortic dissection protocol. Sagittal and coronal 3-D MIP reformats were performed. FINDINGS: HEART: Normal in size without focal cardiac abnormality. PULMONARY ARTERIES: Normal in caliber without filling defects to suggest pulmonary emboli. MEDIASTINUM: No hilar or mediastinal lymphadenopathy. LUNGS: Paraseptal emphysematous changes in the apices. A calcified granuloma is seen in the left uppe r lobe. No focal infiltrates or suspicious masses. PLEURAL SPACE: No pleural effusion or pneumothorax. CHEST AND ABDOMINAL WALL SOFT TISSUES: Unremarkable LIVER: The previously seen small area of hypodensity along the dome of the liver appears to have la pheral puddling and may represent a hemangioma.. GALLBLADDER: Unremarkable. KIDNEYS: Unremarkable. SPLEEN: Unremarkable. PANCREAS: Unremarkable. BOWEL: Unremarkable. RETROPERITONEUM: No lymphadenopathy BONES: Degenerative changes in the spine. ASCENDING THORACIC AORTA: Normal caliber without evidence of dissection or aneurysmal dilatation. DESCENDING THORACIC AORTA: Normal caliber without evidence of dissection or aneurysmal dilatation. M ild diffuse atherosclerotic disease. ABDOMINAL AORTA: Normal caliber without evidence of dissection or aneurysmal dilatation. Moderate dif fuse atherosclerotic disease in the infrarenal aorta down to the bifurcation. CELIAC TRUNK: Patent SMA: Patent JOSÉ: Patent RENAL ARTERIES: Bilateral single renal arteries without significant atherosclerotic disease IMPRESSION: No evidence of thoracic or abdominal aortic aneurysm or dissection
[2020-12-23 19:57] LABS: Hemoglobin 17.9 g/dL (14.0-18.0); Mean Corpuscular Volume 88.1 fL (78.0-98.0); Mean Platelet Volume 7.5 fL (7.4-10.4); Platelet Count 339 thou/uL (130-400); RBC Distribution Width 11.6 % (11.5-14.5); Red Blood Cell (RBC) Count 5.97 mill/uL (4.70-6.10); White Blood Cell (WBC) Count 21.4 thou/uL (4.8-10.8)
[2020-12-23 20:14] LABS: Band 10 % (5-11); Lymphocytes 28 % (21-51); MDiff Complete? YES; Monocytes 10 % (0-10); Neutrophil 52 % (42-75); Platelet Morphology Comment Appears Adequate; RBC Morphology Normal
[2020-12-23 21:43] LABS: SARS-CoV-2 NAA Rapid Test Not Detected (NotDetected)
[2020-12-23 22:25] LABS: Albumin 3.7 g/dL (3.5-5.0)
[2020-12-23 22:26] LABS: Chloride 103 mmol/L (98-107); Potassium 3.9 mmol/L (3.5-5.1); Sodium 134 mmol/L (136-145)
[2020-12-23 22:28] LABS: Globulin 2.5 g/dL (2.4-3.5); Glucose 142 mg/dL (70-105); Protein, Total 6.2 g/dL (6.0-8.3)
[2020-12-23 22:29] LABS: Anion Gap 14 mmol/L (10-20); Bilirubin, Total 1.3 mg/dL (0.2-1.2); Carbon Dioxide 21 mmol/L (22-29)
[2020-12-23 22:31] LABS: Alkaline Phosphatase 87 U/L (40-110); Calc. Creatinine Clearance 0 mL/min (70-130)
[2020-12-23 22:32] LABS: BUN (Urea Nitrogen) 19 mg/dL (8.4-25.7)
[2020-12-23 22:33] LABS: AST (SGOT) 18 U/L (5-34)
[2020-12-23 22:34] LABS: ALT (SGPT) 18 U/L (8-55)
[2020-12-23 23:27] LABS: Troponin I Less than 0.010 ng/mL (< 0.028)
[2020-12-24 00:12] LABS: Bilirubin Negative (Negative); Blood, Urine Negative (Negative); Clarity Clear (Clear); Glucose, Urine (Dipstick) Normal (Negative); Ketone, Urine Negative (Negative); Leukocyte Negative Leu/uL (Negative); Nitrite Negative (Negative); Protein, Urine (Dipstick) Negative (Neg-Trace); Urobilinogen Normal mg/dL (Less than 2); pH, Urine 6.5 (5.0-9.0)
[2020-12-24 00:15] LABS: Specific Gravity, Urine 1.048 (1.002-1.036)
[2020-12-24 00:54] VITALS: BMI 25.4
[2020-12-24 02:18] LABS: Troponin I 0.014 ng/mL (< 0.028)
[2020-12-24] MEDS ORDERED: niCARdipine 25 MG in Sodium Chloride 0.9% 250 ML 250 ML IVPB PRN (03:33)
[2020-12-24] MEDS ORDERED: [UNRECOGNIZED DRUG - REMARK] FS SCH (03:33)
[2020-12-24] MEDS ORDERED: hydrALAZINE 20 MG/ML VIAL SLOW IVP PRN (03:33)
[2020-12-24] MEDS ORDERED: Labetalol HCl 100 MG/20 ML VIAL SLOW IVP PRN (03:33)
[2020-12-24] MEDS: Sodium Chloride 0.9% 1,000 ML IV SCH ×2 (05:26→09:29)
--- NOTE | 2020-12-24 07:25 | CT ---
PRELIMINARY REPORT/[facility]/EMERGENCY AFTER HOURS PROCEDURE: EXAM: CT Head Without Intravenous Contrast. CLINICAL HISTORY: CVA FOLLOW UP TECHNIQUE: Axial computed tomography images of the head/brain without intravenous contrast. COMPARISON: 12/23/2020 FINDINGS: The ventricles, cisterns and sulci are within normal limits. No intra parenchymal or extra-axial mass , hemorrhage, or mass effect. Cordova and white-matter differentiation is within normal limits for niecy ent age. Normal spherical shape of the globes. No significant abnormality involving the imaged portions of th e paranasal sinuses and mastoid air cells. No skull or facial fracture visualized. IMPRESSION: No acute intracranial hemorrhage or mass effect. ELECTRONICALLY SIGNED BY: Basil Johns MD Dec 24, 2020 5:00:32 AM [employer] This report is intended for review by the ordering physician only, in accordance of law. If you recei ve this report in error, please call [facility] at [phone]. FINAL REPORT HEAD CT WITHOUT CONTRAST: COMPARISON: 12/23/2020. HISTORY: CVA. FINDINGS: No parenchymal hemorrhage. No extra-axial hematoma. No midline shift. Basilar cisterns are patent. Brain volume is age-appropriate. Cortical cordova-white matter differentiation is preserved. No hydrocephalus. Calvarium is intact. Adequate aeration of sinuses and mastoid air cells. IMPRESSION: 1. This report is in agreement with initial report by [facility]. 2. No acute intracranial process. POS: PPP
--- NOTE | 2020-12-24 08:28 | HP ---
REASON FOR ADMISSION: Chest pain. HISTORY OF PRESENT ILLNESS: This is a 60-year-old male patient, who is a prisoner, was brought from the retirement complaining of chest pain. While he was in the emergency room, he developed left-sided weakness, and for concern of carotid dissection, he had a CTA of the chest and brain. They were negative. Neurology was consulted and he was cleared to receive tPA, which he did. Subsequently, he clinically improved and now he is basically back to normal. He is currently in the IM, appears to be very comfortable, does not elaborate much on his symptoms. I did review his records. The patient was admitted to our hospital approximately 3 months ago for atypical chest pain. During his stay, he did undergo a stress test that was negative. He was seen by Cardiology, was started on aspirin and statin. He was diagnosed with a solitary hepatic nodule. He was evaluated by Gastroenterology. He did undergo an upper and lower endoscopy. Those procedures were negative for lesions except for mild gastritis. Biopsy was negative for H pylori. He was also diagnosed with a bladder diverticulum that was deemed to be benign. PAST MEDICAL HISTORY: 1. High blood pressure. 2. High cholesterol. SOCIAL HISTORY: Does not smoke. Does not drink alcohol. FAMILY HISTORY: Negative for premature coronary artery disease. REVIEW OF SYSTEMS: All systems reviewed except for the above-mentioned left-sided weakness found to be negative. PHYSICAL EXAMINATION: GENERAL: Awake, alert, oriented, does not appear in distress. VITAL SIGNS: His blood pressure is 101/70, heart rate of 80, temperature is 98 degrees. HEENT: Head is nontraumatic, normocephalic. Pupils equal, reactive. Extraocular movements are intact. Nonicteric sclerae. Well-injected conjunctivae. Oral mucosa normal. Nasal mucosa normal. NECK: Supple. No adenopathy. No murmur. Thyroid is not palpable. Trachea is midline. No supraclavicular lymphadenopathy. HEART: S1, S2, regular. No murmurs. No gallops. No friction rubs. No displacement of PMI. LUNGS: Clear to auscultation bilaterally. No wheezes. No rhonchi. No crackles. ABDOMEN: Bowel sounds are positive. Nontender abdomen. No hepatosplenomegaly. EXTREMITIES: No lower extremity edema. No cyanosis. NEURO: Cranial nerves 2 through 12 within normal limits. Normal motor function and sensory function. Normal reflexes. LABORATORY AND DIAGNOSTIC DATA: Blood work shows WBC of 21.4, hemoglobin 17.9, platelets of 339. Sodium 134, potassium 3.9, bicarb of 21, glucose 142. Urinalysis negative for infection. COVID-[address] dissection protocol shows no evidence of thoracic or abdominal aortic aneurysm or dissection. A CT ruby of [place] protocol shows no stenosis, occlusion, or aneurysmal formation. Moderate fluid distention in the esophagus may reflect dysphagia or reflux. CT of the brain shows no intracranial abnormality. ASSESSMENT AND PLAN: This is a 60-year-old male patient presenting with atypical chest pain, then developed left-sided weakness and dysphagia/aphasia, received tPA and now doing much better. The patient to be admitted to [facility]. We will follow the post tPA protocol. He will have an MRI of the brain and an echocardiogram. We will recheck his labs. We will have him on IV fluids. We will have Neurology to see him. For DVT prophylaxis, he will be on SCDs. Job ID: [id number]
[2020-12-24] MEDS ORDERED: FLU VACC QS2020-21(6MOS UP)/PF 60 MCG/0.5 ML SYRINGE IM ONE (09:00)
[2020-12-24] MEDS ORDERED: Pantoprazole 40 MG GRANULES PACKET PO SCH (09:00)
--- NOTE | 2020-12-24 11:14 | CON ---
DATE OF CONSULTATION: HISTORY OF PRESENT ILLNESS: Basil Brady is a 60-year-old gentleman from the [facility] who apparently presented to the ER with some chest pain and en route, he had some left-sided weakness. CT head angio and chest CT were done and he was given eventually tPA this morning. He is in the MICU. CCU area had been consulted. Awake, alert, responsive. Denies any chest pain, headache, shortness of breath, or coughing. He is a former smoker, 2 packs a day. He has a history of asthma, he tells me. PAST MEDICAL HISTORY: Hypertension, hypothyroidism, migraine headaches, hemorrhoids, previous TIA, hyperlipidemia. PREVIOUS SURGERIES: Stent cardiac. HOME MEDICINES: Include: 1. Amlodipine 10. 2. Atorvastatin 40. 3. Synthroid 200. 4. Lisinopril 20. 5. Omeprazole 20. 6. Inderal 10. ALLERGIES: NITROGLYCERIN. REVIEW OF SYSTEMS: Otherwise, unremarkable. PHYSICAL EXAMINATION: VITAL SIGNS: Temperature 98, , blood pressure 140/80, saturations 95% on room air. GENERAL: Awake, alert, responsive, moves all 4 extremities. CHEST: No wheezing. No crackles. CARDIAC: Normal S1. ABDOMEN: No masses. LABORATORY DATA: Pertinent for sodium 131. Urine is unremarkable. Coronavirus test was done, which was negative. Brain CT was negative. CT angio negative. CT dissection chest to rule out any aneurysm, do not reveal any obvious masses or infiltrates. ASSESSMENT: Status post left-sided weakness involving stroke, received tPA, former tobacco abuse, hypertension. PLAN: Pulmonary is going to follow while in the MICU. Neurology consulted. Continue PT, supportive care. This is a consultation note, 70 minutes, 50% direct patient care. Job ID: [id number]
[2020-12-24] MEDS ORDERED: Lorazepam 2 MG/ML VIAL SLOW IVP PRN (11:35)
--- NOTE | 2020-12-24 13:41 | MRI ---
MRI of thebrain without contrast: 12/24/2020 COMPARISON:None available HISTORY:Possible stroke, dysphagia with right-sided weakness TECHNIQUE: Multiplanar multisequence MR imaging of thebrain without contrast Findings:The diffusion weighted imaging demonstrates no evidence for acute infarction. The axial gradient echo imaging demonstrates no evidence for intracranial hemorrhage. Arterial flow voids at the axial level of the skull base appear unremarkable on the T2-weighted imagi ng. The imaged paranasal sinuses and mastoid air cells demonstrate grossly unremarkable appearance. There are a few scattered subcentimeter foci of increased FLAIR signal within the periventricular and subcortical white matter, evidence of small vessel disease. Regional bone marrow signal intensity appears within normal limits. IMPRESSION:Relatively mild small vessel disease. No MR evidence of intracranial hemorrhage or acute i nfarction.
--- NOTE | 2020-12-24 14:21 | CON ---
DATE OF CONSULTATION: 12/24/2020 REASON FOR CONSULTATION: Stroke-like symptoms, status post tPA/chest pain. HISTORY OF PRESENT ILLNESS: Mr. Basil Brady is a 60-year-old male who was an inmate presented because of chest pain. While he was in the emergency room, he developed left-sided weakness and there was a concern about carotid dissection, so CTA of the chest and brain was done, which was negative for hemodynamically significant stenosis or presence of aneurysm. He continues to have speech issues and focal weakness on the left side with tingling and paresthesias. He received tPA and after which his condition improved and his deficits resolved. The patient denies nausea, vomiting, headache, chest pain, abdominal pain, double vision, loss of vision, loss of consciousness, recent illness, or recent exposure to COVID- 19. REVIEW OF SYSTEMS: All systems reviewed and were negative except the pertinent positives and negatives mentioned in HPI. PAST MEDICAL HISTORY: Hypertension, hypercholesterolemia. SOCIAL HISTORY: The patient denies smoking, alcohol, or illegal drug use. FAMILY HISTORY: Negative for premature coronary artery disease or CVA. ALLERGIES: BUTORPHANOL, NITROGLYCERIN. Vital Signs & Weight: Vital Signs (12 hours) Temp Pulse Ox 12/24/20 16:00 99.0 F 12/24/20 12:00 98.7 F 12/24/20 08:00 97.8 F 12/24/20 07:02 93 L Weight Admit Weight 182 lb 15.739 oz Weight 182 lb 15.739 oz Most Recent Monitor Data Heart Rate from ECG 106 NIBP 94/48 NIBP BP-Mean 63 Respiration from ECG 18 SpO2 96 I&O: 12/23/20 12/24/20 12/25/20 06:59 06:59 06:59 Intake Total 278 760.5 Output Total 900 1600 Balance -622 -839.5 Additional Labs: Accuchecks 12/23/20 19:16 POC Glucose 157 H Active Medications Generic Name Dose Route Start Last Admin Trade Name Freq PRN Reason Stop Dose Admin Sodium Chloride 1,000 mls @ 75 mls/hr 12/24/20 02:00 12/24/20 09:29 Normal Saline 0.9% IV 1,000 mls .[id number] MARY Administration Lorazepam 1 mg 12/24/20 11:35 12/24/20 12:45 Lorazepam 2 Mg/Ml Vial SLOW IVP 12/24/20 18:00 1 mg ONE PRN Administration PRIOR TO MRI Pantoprazole Sodium 40 mg 12/24/20 09:00 12/24/20 08:27 Pantoprazole 40 Mg Tab PO 40 mg BID MARY Administration Sodium Chloride 10 ml 12/24/20 09:00 12/24/20 08:27 Flush - Normal Saline 10 Ml Syringe IVF Not Given Q12HR MARY PHYSICAL EXAMINATION: General Appearance: awake alert Eye: PERRL, anicteric sclera ENT: no oropharyngeal lesions, moist mucosa Neck: supple, no JVD Heart: RRR, no murmur Respiratory: no wheezes, no rales Gastrointestinal: soft, non-tender, non-distended, normal bowel sounds Extremities: no cyanosis, no edema Neurological: Mental status, the patient is alert and oriented to person, place, and time. Recent and remote memory, intact. Fund of knowledge is appropriate. Speech is clear. Cranial nerves 2 through 12 intact. Motor, muscle tone and bulk are normal. Strength 5/5 bilaterally. Sensory intact. Cerebellar, finger-nose testing intact. Gait deferred due to the patient's safety reasons. DATA REVIEWED: I reviewed the labs, which was essentially unremarkable. COVID- [address] dissection protocol showed no evidence of thoracic or abdominal aortic aneurysm or dissection. CT of the lime of [place] showed no stenosis, occlusion, or aneurysmal formation moderate. CT of the brain did not show acute intracranial abnormality. ASSESSMENT AND PLAN: (1) TIA (transient ischemic attack) Code(s): G45.9 - TRANSIENT CEREBRAL ISCHEMIC ATTACK, UNSPECIFIED Status: Resolved (2) HTN (hypertension) Code(s): I10 - ESSENTIAL (PRIMARY) HYPERTENSION Status: Chronic Qualifiers: Hypertension type: essential hypertension Qualified Code(s): I10 - Essential (primary) hypertension (3) Chest pain Code(s): R07.9 - CHEST PAIN, UNSPECIFIED Status: Resolved Qualifiers: Chest pain type: unspecified Qualified Code(s): R07.9 - Chest pain, unspecified (4) Hypothyroidism Code(s): E03.9 - HYPOTHYROIDISM, UNSPECIFIED Status: Chronic Qualifiers: Hypothyroidism type: acquired Qualified Code(s): E03.9 - Hypothyroidism, unspecified (5) CAD (coronary artery disease) Code(s): I25.10 - ATHSCL HEART DISEASE OF [place] CORONARY ARTERY W/O ANG PCTRS Status: Chronic Qualifiers: Coronary Disease-Associated Artery/Lesion type: [place] artery [place] vs. transplanted heart: [place] heart Associated angina: without angina Qualified Code(s): I25.10 - Atherosclerotic heart disease of [place] coronary artery without angina pectoris (6) Dyslipidemia Code(s): E78.5 - HYPERLIPIDEMIA, UNSPECIFIED Status: Chronic Mr. Basil Brady is a 60-year-old male who presented with atypical chest pain and left-sided weakness with dysphagia and receptive aphasia. He received tPA after which stroke-like symptoms are almost completely resolved. He is currently admitted to [facility]. Continue post tPA protocol for frequent neuro checks and telemetry to rule out arrhythmias. 2D echo to evaluate for left ventricular ejection fraction and to rule out PFO. MRI of the brain to assess intracranial pathology. CTA of the head and neck reviewed, which was negative for hemodynamically significant stenosis, n.p.o. until cleared by Speech. Repeat head CT in 24 hours post tPA and if negative and start aspirin, high-intensity statin for secondary stroke prevention. Check hemoglobin A1c, fasting lipid panel, and TSH. Continue home medications once cleared by Speech. Permissive control of blood pressure at this time. Strict control of blood glucose. PT/OT/Speech. Deep venous thrombosis prophylaxis with SCDs. Continue medical management per primary team. We will continue to follow. Thank you for the consult. Job ID: [id number] LILA
--- NOTE | 2020-12-24 16:44 | PDOC.HOSPP ---
- Subjective Encounter Date: 12/24/20 Encounter Time: 11:00 Subjective: no weakness, chest pain or palp feels good now - Objective Vital Signs & Weight: Vital Signs (12 hours) Temp Pulse Ox 12/24/20 16:00 99.0 F 12/24/20 12:00 98.7 F 12/24/20 08:00 97.8 F 12/24/20 07:02 93 L Weight Admit Weight 182 lb 15.739 oz Weight 182 lb 15.739 oz Most Recent Monitor Data Heart Rate from ECG 106 NIBP 94/48 NIBP BP-Mean 63 Respiration from ECG 18 SpO2 96 I&O: 12/23/20 12/24/20 12/25/20 06:59 06:59 06:59 Intake Total 278 760.5 Output Total 900 1600 Balance -622 -839.5 Result Diagrams: 12/23/20 19:02 12/23/20 21:35 Additional Labs: Accuchecks 12/23/20 19:16 POC Glucose 157 H Hospitalist ROS - Medication Medications: Active Medications Generic Name Dose Route Start Last Admin Trade Name Freq PRN Reason Stop Dose Admin Sodium Chloride 1,000 mls @ 75 mls/hr 12/24/20 02:00 12/24/20 09:29 Normal Saline 0.9% IV 1,000 mls .[id number] MARY Administration Lorazepam 1 mg 12/24/20 11:35 12/24/20 12:45 Lorazepam 2 Mg/Ml Vial SLOW IVP 12/24/20 18:00 1 mg ONE PRN Administration PRIOR TO MRI Pantoprazole Sodium 40 mg 12/24/20 09:00 12/24/20 08:27 Pantoprazole 40 Mg Tab PO 40 mg BID MARY Administration Sodium Chloride 10 ml 12/24/20 09:00 12/24/20 08:27 Flush - Normal Saline 10 Ml Syringe IVF Not Given Q12HR [facility] Hospitalist Exam Vitals: Vital Signs (12 hours) Temp Pulse Ox 12/24/20 16:00 99.0 F 12/24/20 12:00 98.7 F 12/24/20 08:00 97.8 F 12/24/20 07:02 93 L Weight Admit Weight 182 lb 15.739 oz Weight 182 lb 15.739 oz Most Recent Monitor Data Heart Rate from ECG 106 NIBP 94/48 NIBP BP-Mean 63 Respiration from ECG 18 SpO2 96 General Appearance: awake alert Eye: PERRL, anicteric sclera ENT: no oropharyngeal lesions, moist mucosa Neck: supple, no JVD Heart: RRR, no murmur Respiratory: no wheezes, no rales Gastrointestinal: soft, non-tender, non-distended, normal bowel sounds Extremities: no cyanosis, no edema Neurological: cranial nerve grossly intact, no focal deficits Psychiatric: normal affect, A&O x 3 Hosp A/P (1) TIA (transient ischemic attack) Code(s): G45.9 - TRANSIENT CEREBRAL ISCHEMIC ATTACK, UNSPECIFIED Status: Resolved (2) HTN (hypertension) Code(s): I10 - ESSENTIAL (PRIMARY) HYPERTENSION Status: Chronic Qualifiers: Hypertension type: essential hypertension Qualified Code(s): I10 - Essential (primary) hypertension (3) Chest pain Code(s): R07.9 - CHEST PAIN, UNSPECIFIED Status: Resolved Qualifiers: Chest pain type: unspecified Qualified Code(s): R07.9 - Chest pain, unspecified (4) Hypothyroidism Code(s): E03.9 - HYPOTHYROIDISM, UNSPECIFIED Status: Chronic Qualifiers: Hypothyroidism type: acquired Qualified Code(s): E03.9 - Hypothyroidism, unspecified (5) CAD (coronary artery disease) Code(s): I25.10 - ATHSCL HEART DISEASE OF [place] CORONARY ARTERY W/O ANG PCTRS Status: Chronic Qualifiers: Coronary Disease-Associated Artery/Lesion type: [place] artery [place] vs. transplanted heart: [place] heart Associated angina: without angina Qualified Code(s): I25.10 - Atherosclerotic heart disease of [place] coronary artery without angina pectoris (6) Dyslipidemia Code(s): E78.5 - HYPERLIPIDEMIA, UNSPECIFIED Status: Chronic - Plan recieved tPA on arrival for suspected left sided weakness and word finding difficulty, all imaging studies are -ve so far for ac cva, likely had tia which has resolved echo shows normal ef ct brain x2 is -ve for bleed or ac cva, mri no ac infarct labs at 8pm after stroke protocol is done to check wbc, initial elevated wbc is due to margination? hemo/neurostable may [facility] after tPA protocol is done. mobilize him in the room prior to discharge ate his breakfast and lunch well.
[2020-12-24 19:40] VITALS: TEMP 98.3
--- NOTE | 2020-12-24 20:46 | CT ---
CT OF THE BRAIN WITHOUT CONTRAST: 12/24/20 COMPARISON: 12/24/20 at 4:44 a.m. MRI of brain 12/24/20 at 1:27 p.m. HISTORY: Stroke, status post TPA. TECHNIQUE: Multiple contiguous axial images were obtained in a CT of the brain without contrast. Sagittal and c oronal reformats were performed. FINDINGS: There are subtle scattered hypodensities in the subcortical and periventricular white matter, likely secondary to small vessel ischemic disease. No large confluent infarction is seen. There is no eviden ce of hydrocephalus, intracranial hemorrhage, or extra-axial fluid collections. The calvarium and overlying soft tissues are unremarkable. The visualized paranasal sinuses and masto id air cells are well aerated. IMPRESSION: No evidence of acute intracranial abnormality. POS: EAA
[2020-12-24] MEDS ORDERED: Atorvastatin Calcium 40 MG TAB PO SCH (21:00)
[2020-12-24 21:24] LABS: Hemoglobin 13.8 g/dL (14.0-18.0); Mean Corpuscular HGB CONC 34.5 g/dL (32.0-36.0); Mean Corpuscular Hemoglobin 30.2 pg (27.0-31.0); Mean Corpuscular Volume 87.7 fL (78.0-98.0); Mean Platelet Volume 6.8 fL (7.4-10.4); Platelet Count 307 thou/uL (130-400); RBC Distribution Width 11.4 % (11.5-14.5); Red Blood Cell (RBC) Count 4.57 mill/uL (4.70-6.10); White Blood Cell (WBC) Count 21.9 thou/uL (4.8-10.8)
[2020-12-24 21:27] LABS: Anion Gap 12 mmol/L (10-20); BUN (Urea Nitrogen) 21 mg/dL (8.4-25.7); Calc. Creatinine Clearance 92 mL/min (70-130); Calcium 8.5 mg/dL (7.8-10.44); Carbon Dioxide 23 mmol/L (22-29); Chloride 108 mmol/L (98-107); Glucose 153 mg/dL (70-105); Potassium 4.5 mmol/L (3.5-5.1); Sodium 138 mmol/L (136-145)
[2020-12-24 21:39] LABS: Band 16 % (5-11); Eosinophils 1 % (0-10); Lymphocytes 5 % (21-51); MDiff Complete? YES; Monocytes 12 % (0-10); Neutrophil 66 % (42-75); Platelet Morphology Comment Appears Adequate
--- NOTE | 2020-12-25 13:26 | DIS ---
DATE OF ADMISSION: 12/23/2020 DATE OF DISCHARGE: 12/24/2020 DISCHARGE DISPOSITION: To half-way facility. PRIMARY DISCHARGE DIAGNOSES: Possible transient ischemic attack with left-sided weakness, resolved, status post tPA. Chest pain, which is noncardiac. SECONDARY DISCHARGE DIAGNOSES: 1. Hypertension. 2. History of coronary artery disease. 3. Hypothyroidism. 4. Dyslipidemia. PROCEDURES DONE DURING HOSPITALIZATION: CT brain done on the day of admission showed no acute intracranial abnormality. CT angio of brain showed no hemodynamically significant stenosis, occlusion, or aneurysm formation. CT dissection protocol done on the same day showed no evidence of dissection or aneurysm in the thoracic or abdominal aorta. He has had nearly 3 CT scans without contrast for the brain done due to tPA protocol. None of which show any bleed. MRI brain done on 12/24/2020 showed no acute infarct. There is mild small-vessel disease seen. There is no intracranial hemorrhage. Echo with 2D Doppler showed ejection fraction of 60% to 65%. There was no thrombus noted in the cardiac chambers. Blood cultures x2, no growth. Had a white count of 21, H and H of 13 and 40, and platelet count 307 with 66% neutrophils. BUN of 21, creatinine 1.0. Troponin x2 negative. LFTs were within normal limits. Albumin 3.7. Electrolytes are stable. UA did not show any sign of infection. COVID-19 PCR was negative. Influenza A and B RNA PCRs were negative. DISCHARGE MEDICATIONS: 1. Aspirin 81 mg p.o. daily. 2. Lipitor 40 mg p.o. at bedtime. 3. Omeprazole 20 mg p.o. daily. 4. Norvasc 10 mg p.o. daily. 5. Lisinopril 20 mg daily. 6. Propranolol as before. 7. Levothyroxine 50 mcg p.o. daily. ALLERGIES: ALLERGIC TO NITROGLYCERIN. INPATIENT CONSULT: 1. Dr. Thomas for Neurology. 2. Dr. Braun for Pulmonology. DISCHARGE PLAN: The patient needs to follow up with his half-way primary care physician in 1 to 2 days and have repeat CBC done to see if his white count is persisting. BRIEF COURSE DURING HOSPITALIZATION: The patient initially was sent over from his half-way facility for complaints of chest pain and en route, the patient developed left-sided weakness, which was concerning for CVA. He was a stroke alert. As the patient was within window, he was given tPA and admitted to ICU. His left-sided weakness completely resolved on arrival. He has had multiple CT brain without contrast as part of tPA protocol done, which have not shown any bleed or acute infarcts. MRI done did not reveal any acute infarct or hemorrhage. Echo showed normal ejection fraction. His troponin x2 were negative. The patient had a CT dissection protocol done in view of his chest pain on arrival with neurologic symptoms, and there is no sign of dissection. He had elevated white count of 21 on arrival, but had no sign of any infection as such. Blood cultures were negative. Urinalysis did not reveal any acute infection. The dissection protocol done did not reveal any findings in the lungs except for paraseptal emphysematous changes in the apex. A calcified granuloma was seen in the left upper lobe. There is no focal infiltrate or suspicious mass seen on the CT dissection protocol. The patient remained afebrile with no signs of infection clinically. He needs to follow up with his half-way primary care physician in 1 to 2 days with a repeat CBC to see if this is a persistent finding and likely Hematology referral versus further workup towards the same. He is neurologically stable and hemodynamically stable. He is tolerating oral solid diet. He is ambulating in the room in ICU. He was evaluated by Dr. Thomas for Neurology and Dr. Braun for Pulmonology. He will be shortly discharged back to half-way facility in stable fashion. Please note, I have seen and examined the patient on the day of discharge. Job ID: [id number]
== END 2020-12-24 22:25 | DRG 62 ==
LOC: EEVIPCON 18:45 → ERS 18:45 → IMCU/EMU 22:38
PROVIDERS: ADMIT Internal Medicine; ATTEND Internal Medicine
DX: G45.9 Transient cerebral ischemic attack, unspecified (principal); G81.94 Hemiplegia, unspecified affecting left nondominant side; I10 Essential (primary) hypertension; R07.9 Chest pain, unspecified; E03.9 Hypothyroidism, unspecified; E78.5 Hyperlipidemia, unspecified; I25.10 Atherosclerotic heart disease of native coronary artery without angina pectoris; Z87.891 Personal history of nicotine dependence
CPT/HCPCS: 0240U; 36415; 36416; 70450; 70496; 70498; 70551; 71275; 74174; 80048; 80053; 81003; 83605; 84484; 85025; 87040; 90471; 90732; 93005; 93306; 96365; 96375; 99292; G0009; J1200; J2060; J2930; J2997; Q9967